=== PATIENT | female | born 1930 | race Caucasian/White ===

== ENCOUNTER 2017-02-22 13:48 | Observation (INO) | payer MEDICARE, OTHER ==
[2017-02-22] MEDS ORDERED: methylPREDNISolone Sodium Succinate 125 MG/2 ML SDV IM ONE (14:15)
[2017-02-22] MEDS ORDERED: Ondansetron 4 MG/2 ML SDV IVPUSH ONE (14:15)
[2017-02-22] MEDS ORDERED: methylPREDNISolone Sodium Succinate 125 MG/2 ML SDV IVPUSH ONE (14:34)
[2017-02-22] MEDS: Sodium Chloride 0.9% 10 ML Syringe FLUSH PRN (14:53)
--- NOTE | 2017-02-22 15:09 | CT ---
Head CT Technique: Multiple axial sections through the brain were obtained. Intravenous contrast was not utilized. Findings: Ventricles along with basal cisterns and sulci over the convexities are mildly prominent. There is focal atrophy seen overlying the frontal convexities. No abnormal parenchymal densities are seen. No evidence of intracranial hemorrhage. No midline shift or mass effect is seen. Atherosclerotic calcification is seen within the carotid siphon. Bone window settings were reviewed which shows no discrete calvarial abnormality. Visualized sinuses are clear. Impression: 1. Generalized atrophy asymmetrically worse over the frontal convexities. 2. No acute intracranial abnormality is identified on noncontrast head CT exam. Diagnostic code #2
--- NOTE | 2017-02-22 16:27 | EDM.PDOC ---
ED HPI GENERAL MEDICAL PROBLEM - General Chief Complaint: Neurological Problem Stated Complaint: [facility] Time Seen by Provider: 02/22/17 14:03 Source of Information: Reports: Patient, Family, RN Notes Reviewed - History of Present Illness INITIAL COMMENTS - FREE TEXT/NARRATIVE: 87-year-old lady comes in severe vertigo. She had onset of this about 6 hours ago. The vertigo is worse with motion, better to lie or sit still. She has had episodes of vertigo in the past but she also does have moderately severe headache this time. She denies history of frequent or severe headaches. Headache is primarily frontal with mild throbbing component. She has been nauseated. She had a small emesis upon arrival to ED. No focal weakness. History of hypertension. She denies history for diabetes. Recent fall or injury. She has been on blood thinner medication in the past but now aspirin in addition to her medications primarily for hypertension and hypothyroidism. Headache Pain Score (Numeric/FACES): 9 - Related Data Allergies Allergy/AdvReac Type Severity Reaction Status Date / Time codeine Allergy Other Verified 02/22/17 13:57 Home Meds: Home Meds Aspirin 2 tab PO DAILY 02/22/17 [History] Irbesartan 300 mg PO DAILY 02/22/17 [History] Levothyroxine 125 mcg PO DAILY 02/22/17 [History] Pindolol 5 mg PO DAILY 02/22/17 [History] Pramipexole [Mirapex] 0.5 mg PO BEDTIME 02/22/17 [History] Triamterene 1 gm PO ACBREAKFAST PRN 02/22/17 [History] amLODIPine [Norvasc] 5 mg PO DAILY 02/22/17 [History] Past Medical History HEENT History: Reports: Cataract Cardiovascular History: Reports: Hypertension, Pacemaker, Other (See Below) Other Cardiovascular History: ablasion 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: Endocrine/Metabolic History: Reports: Other (See Below) Other Endocrine/Metabolic History: unsure if it is hyper or hypo thyroidism - Past Surgical History HEENT Surgical History: Reports: Adenoidectomy, Tonsillectomy GI Surgical History: Reports: Appendectomy, Cholecystectomy Musculoskeletal Surgical History: Reports: Knee Replacement Dermatological Surgical History: Reports: Plastic Surgical Reconstruction/Repair Social & Family History - Tobacco Use Smoking Status *Q: Never Smoker - Caffeine Use Caffeine Use: Reports: Coffee, Tea - Recreational Drug Use Recreational Drug Use: No ED ROS GENERAL - Review of Systems Review Of Systems: See Below Constitutional: Denies: Fever, Chills, Diaphoresis HEENT: Denies: Ear Discharge, Ear Pain, Sinus Problem, Throat Pain, Vision Change Respiratory: Denies: Shortness of Breath Cardiovascular: Denies: Chest Pain GI/Abdominal: Reports: Nausea, Vomiting. Denies: Abdominal Pain Musculoskeletal: Denies: Neck Pain, Back Pain Skin: Reports: No Symptoms Neurological: Reports: Dizziness, Headache. Denies: Numbness, Tingling, Trouble Speaking, Weakness ED EXAM, DIZZINESS - Physical Exam Exam: See Below General Appearance: Alert, Moderate Distress Eye Exam: Bilateral Eye: PERRL Nystagmus: reproducible (Mild, horizontal) Ears: Normal External Exam, Normal Canal Nose: Normal Inspection Throat/Mouth: Normal Inspection, Normal Oropharynx Head Exam: Atraumatic. No: Facial Swelling Respiratory/Chest: No Respiratory Distress, Lungs Clear, Normal Breath Sounds Cardiovascular: Regular Rate, Rhythm GI/Abdominal: Soft, Non-Tender Neurological: Alert, No Motor/Sensory Deficits, Oriented x 3 Extremities: Normal Inspection, Normal Range of Motion. No: Leg Pain Skin Exam: Warm, Dry Course - Vital Signs Last Recorded V/S: Last Vital Signs Temp 97.3 F 02/22/17 13:58 Pulse 62 02/22/17 13:58 Resp 18 02/22/17 13:58 BP 148/60 H 02/22/17 13:58 Pulse Ox 100 02/22/17 13:58 - Orders/Labs/Meds Orders: Active Orders 24 hr Category Date Time Status Peripheral IV Care [RC] . DIRECTED Care 02/22/17 14:15 Active Sodium Chloride 0.9% [Saline Flush] Med 02/22/17 14:15 Active 10 ml FLUSH ASDIRECTED PRN Peripheral IV Insertion Adult [OM.PC] Stat Oth 02/22/17 14:15 Ordered Medication Orders Sodium Chloride (Saline Flush) 10 ml FLUSH ASDIRECTED PRN PRN Reason: Keep Vein Open Last Admin: 02/22/17 14:53 Dose: 10 ml Labs: Laboratory Tests 02/22/17 02/22/17 Range/Units 14:20 14:20 WBC 6.21 (3.98-10.04) K/mm3 RBC 3.91 L (3.98-5.22) M/mm3 Hgb 12.8 (11.2-15.7) gm/L Hct 38.4 (34.1-44.9) % MCV 98.2 H (79.4-94.8) fl MCH 32.7 H (25.6-32.2) pg MCHC 33.3 (32.2-35.5) g/dl RDW Std Deviation 49.9 H (36.4-46.3) fL Plt Count 233 (182-369) K/mm3 MPV 9.3 L (9.4-12.3) fl Neut % (Auto) 78.7 H (34.0-71.1) % Lymph % (Auto) 15.3 L (19.3-51.7) % [place] % (Auto) 4.7 (4.7-12.5) % Eos % (Auto) 0.2 L (0.7-5.8) Baso % (Auto) 0.3 (0.1-1.2) % Neut # (Auto) 4.89 (1.56-6.13) K/mm3 Lymph # (Auto) 0.95 L (1.18-3.74) K/mm3 [place] # (Auto) 0.29 (0.24-0.36) K/mm3 Eos # (Auto) 0.01 L (0.04-0.36) K/mm3 Baso # (Auto) 0.02 (0.01-0.08) K/mm3 Sodium 138 (136-145) mEq/L Potassium 3.5 (3.5-5.1) mEq/L Chloride 102 (98-107) mEq/L Carbon Dioxide 24 (21-32) mEq/L Anion Gap 15.5 H (5-15) BUN 23 H (7-18) mg/dL Creatinine 0.9 (0.55-1.02) mg/dL Est Cr Clr Drug Dosing 40.38 mL/min Estimated GFR (MDRD) 59 (>60) mL/min BUN/Creatinine Ratio 25.6 H (14-18) Glucose 127 H (83-115) mg/dL Calcium 9.0 (8.5-10.1) mg/dL Total Bilirubin 0.6 (0.2-1.0) mg/dL AST 24 (15-37) U/L ALT 20 (14-59) U/L Alkaline Phosphatase 101 (46-116) U/L Total Protein 7.1 (6.4-8.2) g/dl Albumin 3.7 (3.4-5.0) g/dl Globulin 3.4 gm/dL Albumin/Globulin Ratio 1.1 (1-2) Meds: Medications Generic Name Dose Route Start Last Admin Trade Name Fremali PRN Reason Stop Dose Admin Sodium Chloride 10 ml 02/22/17 14:15 02/22/17 14:53 Saline Flush FLUSH 10 ml ASDIRECTED PRN Administration Keep Vein Open Discontinued Medications Generic Name Dose Route Start Last Admin Trade Name Fremali PRN Reason Stop Dose Admin Diazepam 2 mg 02/22/17 14:15 02/22/17 14:38 Valium IVPUSH 02/22/17 14:16 2 mg ONETIME ONE Administration Methylprednisolone Sodium Succinate 125 mg 02/22/17 14:15 02/22/17 14:54 Solu-Medrol IM 02/22/17 14:16 Not Given ONETIME ONE Methylprednisolone Sodium Succinate 125 mg 02/22/17 14:34 02/22/17 14:34 Solu-Medrol IVPUSH 02/22/17 14:35 125 mg ONETIME ONE Administration Ondansetron HCl 4 mg 02/22/17 14:15 02/22/17 14:36 Zofran IVPUSH 02/22/17 14:16 4 mg ONETIME ONE Administration - Re-Assessments/Exams Free Text/Narrative Re-Assessment/Exam: 02/22/17 16:00. Head CT does not show acute abnormality, see radiology report for detail. 16:15. Labs are all relatively normal. When I went in to check on patient a few minutes ago she was very soundly sleeping. Of note she was medicated with Zofran 4 mg IV, Valium 2 mg IV, solumedrol 125 mg IV. 02/22/17 19:20.. Patient awake, feels better, no longer nauseated or having vertigo at rest but when we did try sit her up she did become quite nauseated and was still having some vertigo. [place]. With her continued symptomatology, she and family are not comfortable with her going home. We will admit her at least observation status into the hospital tonight for rest, nursing assistance as needed and further treatment as needed. Departure - Departure Time of Disposition: 19:42 Disposition: Admitted As Inpatient 67 Condition: Fair Clinical Impression: Labyrinthitis Qualifiers: Laterality: unspecified laterality Qualified Code(s): H83.09 - Labyrinthitis, unspecified ear - Discharge Information Referrals: PCP,Not In Area [Primary Care Provider] - Forms: ED Department Discharge ED Communication - Discussed Case With (1) Discussed Case With (1): Admitting Provider (Dr. Urbano, decision to admit at about 19:30.) - My Orders Last 24 Hours: My Active Orders 02/22/17 14:15 Peripheral IV Care [RC] . DIRECTED Sodium Chloride 0.9% [Saline Flush] 10 ml FLUSH ASDIRECTED PRN Peripheral IV Insertion Adult [OM.PC] Stat - Assessment/Plan Last 24 Hours: My Active Orders 02/22/17 14:15 Peripheral IV Care [RC] . DIRECTED Sodium Chloride 0.9% [Saline Flush] 10 ml FLUSH ASDIRECTED PRN Peripheral IV Insertion Adult [OM.PC] Stat
[2017-02-22] MEDS ORDERED: Ondansetron 4 MG/2 ML SDV IV PRN (21:50)
[2017-02-22] MEDS ORDERED: Albuterol/Ipratropium 3.0-0.5 MG/3 ML Neb Soln NEB PRN (21:50)
[2017-02-22] MEDS ORDERED: Bisacodyl 5 MG Tab PO PRN (21:50)
[2017-02-22] MEDS ORDERED: Polyethylene Glycol 3350 Powder 17 GM Packet PO PRN (21:50)
[2017-02-22] MEDS ORDERED: Docusate Sodium 100 MG Cap PO PRN (21:50)
[2017-02-22] MEDS ORDERED: Temazepam 7.5 MG Cap PO PRN (21:50)
[2017-02-22] MEDS ORDERED: Ondansetron 4 MG Tab.DIS PO PRN (21:50)
[2017-02-22] MEDS ORDERED: Ibuprofen 400 MG Tab PO PRN (21:50)
--- NOTE | 2017-02-22 22:28 | PCM.HP ---
H&P History of Present Illness - General Date of Service: 02/22/17 Admit Problem/Dx: Admission Diagnosis/Problem Admission Diagnosis/Problem Vertigo Source of Information: Patient, Old Records, Provider, RN, RN Notes Reviewed History Limitations: Reports: No Limitations - History of Present Illness Initial Comments - Free Text/Narative: Beny Michelle is an 87 yo female who presented to our ER today with severe vertigo for the past 6 hours. Vertigo is worse with motion and better if she lies or sits still. She's had episodes of vertigo in the past and has been treated and hospitalized multiple times also. She has a moderately severe headache this time. Eyes history of headaches. Take his primary frontal with mild throbbing. She has been nauseous and vomited. Full code weakness. History of hypertension. No recent fall or injury. She has been on blood thinner medication edition the past but now on just aspirin. On arrival temp was 97.3F. Pulse 62. Respirations 18. Blood pressure 140/ 60. Pulse ox 100%. Head CT was obtained. Per Dr. Felix interpretation: Ventricles along the basal cisterns and sulci over the convexities are mildly prominent. There is focal atrophy seen overlying the frontal convexities. No abnormal parenchymal densities are seen. No evidence of intracranial hemorrhage. No midline shift or mass effect is seen. Atherosclerotic calcifications seen within the carotid siphon. Labs are obtained: White count normal at 6.21. Hemoglobin 12.8. Hematocrit 30.4. She is macrocytic. Platelet count normal at 233,000. Neutrophils slightly elevated at 70.7. Sodium normal 138. Potassium 3.5. Chloride 102. Carbon dioxide 24. Anion gap 15.5 and slightly elevated. BUN elevated at 23. Creatinine 0.9. GFR is estimated to be 59. Glucose slightly elevated at 127. Calcium normal at 9. Bilirubin normal at 0.6. Liver enzymes AST 24, ALT 20, alkaline phosphatase 101. Protein normal at 7.1 albumin normal at 3.7. She was medicated with Zofran 4 mg IV, Valium 2 mg IV and Solu-Medrol 125 mg IV. In the ED she was feeling good until she sat up at which time she became nauseated and continued to have vertigo. She lives alone out of town and it was determined she would stay in the hospital as opposed to returning home. She carries a history of colon cataracts, hypertension, pacemaker, cardiac ablation, hypothyroidism. She was never a smoker. She was subsequently admitted to the medical floor under observation status. CODE STATUS is DNR/DNI. Her primary care provider is not in the area. Headache Pain Score (Numeric/FACES): 5 - Related Data Allergies/Adverse Reactions: Allergies Allergy/AdvReac Type Severity Reaction Status Date / Time codeine Allergy Other Verified 02/22/17 21:24 Penicillins Allergy Cannot Verified 02/22/17 21:25 Remember Home Medications: Home Meds Aspirin 162 mg PO BEDTIME 02/22/17 [History] Ibuprofen 200 - 400 mg PO Q6H PRN 02/22/17 [History] Irbesartan 300 mg PO DAILY 02/22/17 [History] Levothyroxine 125 mcg PO DAILY 02/22/17 [History] Pindolol 5 mg PO DAILY 02/22/17 [History] Pramipexole [Mirapex] 0.5 mg PO BEDTIME 02/22/17 [History] Triamterene 1 gm PO ACBREAKFAST PRN 02/22/17 [History] amLODIPine [Norvasc] 5 mg PO DAILY 02/22/17 [History] Past Medical History HEENT History: Reports: Hard of Hearing, Impaired Vision, Other (See Below) Other HEENT History: wears glasses, wears bilateral hearing aids, has upper dentures Cardiovascular History: Reports: Afib, Hypertension, Pacemaker, Other (See Below ) Other Cardiovascular History: ablasion Respiratory History: Reports: PE, Sleep Apnea Gastrointestinal History: Reports: None Genitourinary History: Reports: UTI, 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: Musculoskeletal History: Reports: Arthritis Neurological History: Reports: Vertigo Endocrine/Metabolic History: Reports: Hypothyroidism Other Endocrine/Metabolic History: unsure if it is hyper or hypo thyroidism Dermatologic History: Reports: None - Past Surgical History HEENT Surgical History: Reports: Adenoidectomy, Cataract Surgery, Tonsillectomy Cardiovascular Surgical History: Reports: Pacer Respiratory Surgical History: Reports: None GI Surgical History: Reports: Appendectomy, Cholecystectomy, Colonoscopy Female Surgical History: Reports: None Endocrine Surgical History: Reports: None Neurological Surgical History: Reports: None Musculoskeletal Surgical History: Reports: Knee Replacement, Other (See Below) Other Musculoskeletal Surgeries/Procedures:: right knee replaced May 2013 by in [place] Dermatological Surgical History: Reports: Plastic Surgical Reconstruction/Repair Social & Family History - Family History Family Medical History: Noncontributory - Tobacco Use Smoking Status *Q: Never Smoker - Caffeine Use Caffeine Use: Reports: Coffee, Tea - Alcohol Use Days Per Week of Alcohol Use: 7 Number of Drinks Per Day: 2 Total Drinks Per Week: 14 - Recreational Drug Use Recreational Drug Use: No H&P Review of Systems - Review of Systems: Review Of Systems: See Below General: Denies: Fever, Chills, Malaise, Weakness, Fatigue, Night Sweats HEENT: Reports: Headaches. Denies: Contact Lenses, Dysphasia, Ear Pain, Eye Pain, Post Nasal Drip, Sinus Congestion, Sore Throat Pulmonary: Reports: No Symptoms. Denies: Shortness of Breath, Wheezing, Pleuritic Chest Pain, Cough, Sputum Gastrointestinal: Reports: Nausea (Worse with movement), Vomiting (Worse with movement). Denies: No Symptoms, Abdominal Pain, Anorexia, Black Stool, Constipation, Diarrhea, Melena Genitourinary: Reports: No Symptoms Musculoskeletal: Reports: No Symptoms Skin: Reports: No Symptoms Psychiatric: Reports: No Symptoms. Denies: Confusion, Depression, Mood Lability , Anxiety Neurological: Reports: Dizziness, Headache. Denies: Numbness, Seizure, Syncope , Tingling, Difficulty Walking, Weakness, Change in Speech, Gait Disturbance Hematologic/Lymphatic: Reports: No Symptoms Immunologic: Reports: No Symptoms Exam - Exam Exam: See Below - Vital Signs Vital Signs: Last Vital Signs Temp 97.3 F 02/22/17 13:58 Pulse 59 L 02/22/17 20:49 Resp 16 02/22/17 20:49 BP 127/66 02/22/17 20:49 Pulse Ox 96 02/22/17 20:49 Weight: 205 lb 12.8 oz - Exam Quality Assessment: Supplemental Oxygen, DVT Prophylaxis General: Alert, Oriented, Cooperative HEENT: Conjunctiva Clear, EACs Clear, EOMI (Mild horizontal nystagmus noted. Increased pain with left superior gaze.), Hearing Intact, Mucosa Moist & [place], Nares Patent, Normal Nasal Septum, Posterior Pharynx Clear, PERRLA Neck: Supple, Trachea Midline. No: JVD Lungs: Clear to Auscultation, Normal Respiratory Effort Cardiovascular: Regular Rate, Regular Rhythm GI/Abdominal Exam: Normal Bowel Sounds, Soft, Non-Tender, No Organomegaly, No Distention, No Abnormal Bruit, No Mass (Female) Exam: Deferred Rectal (Female) Exam: Deferred Back Exam: Normal Inspection, Full Range of Motion Extremities: Normal Inspection, Normal Range of Motion, Non-Tender, No Pedal Edema, Normal Capillary Refill Peripheral Pulses: 2+: Radial (L), Radial (R), Posterior Tibial (L), Posterior Tibial (R), Dorsalis Pedis (L), Dorsalis Pedis (R) Skin: Warm, Dry, Intact Neurological: Cranial Nerves Intact (Grossly) Neuro Extensive - Mental Status: Alert, Oriented x3, Normal Mood/Affect, Normal Cognition, Memory Intact Neuro Extensive - Motor, Sensory, Reflexes: CN II-XII Intact (Grossly) Psychiatric: Alert, Normal Affect, Normal Mood Physical Exam Comments:: At this time only complaint is headache. I did have the patient move this in the lung sounds and examine her back and she complained of mild dizziness at that time. - Patient Data Result Diagrams: 02/22/17 14:20 02/22/17 14:20 *Q Meaningful Use (ADM) - VTE *Q VTE Criteria *Q: - Stroke *Q Stroke Criteria *Q: - AMI *Q AMI Criteria *Q: - Problem List (1) Dizziness SNOMED Code(s): 826284973 ICD Code: R42 - DIZZINESS AND GIDDINESS Status: Acute Priority: High Current Visit: Yes (2) Headache SNOMED Code(s): 48194740 ICD Code: R51 - HEADACHE Status: Acute Priority: High Current Visit: Yes Qualifiers: Headache type: unspecified Headache chronicity pattern: acute headache Intractability: not intractable Qualified Code(s): R51 - Headache Problem List Initiated/Reviewed/Updated: Yes Orders Last 24hrs: Active Orders 24 hr Category Date Time Status Patient Status [ADT] Routine ADT 02/22/17 20:22 Active Ambulate [RC] PER UNIT ROUTINE Care 02/22/17 21:58 Active Antiembolic Devices [RC] PER UNIT ROUTINE Care 02/22/17 22:02 Active Height and Weight [RC] DAILY Care 02/22/17 21:50 Active Intake and Output [RC] QSHIFT Care 02/22/17 21:58 Active Oxygen Therapy [RC] PRN Care 02/22/17 21:50 Active Pulse Oximetry [RC] PRN Care 02/22/17 21:58 Active RT Aerosol Therapy [RC] ASDIRECTED Care 02/22/17 22:02 Active Up With Assistance [RC] ASDIRECTED Care 02/22/17 21:50 Active VTE/DVT Education [RC] PER UNIT ROUTINE Care 02/22/17 21:50 Active Vital Signs [RC] Q4H Care 02/22/17 21:50 Active Consult to Case Management [CONS] Routine Cons 02/22/17 21:50 Active Consult to Welder Tack [CONS] Routine Cons 02/22/17 21:50 Active OT Evaluation and Treatment [CONS] Routine Cons 02/22/17 21:50 Active PT Evaluation and Treatment [CONS] Routine Cons 02/22/17 21:50 Active Heart Healthy Diet [DIET] Diet 02/23/17 Breakfast Active Albuterol/Ipratropium [DuoNeb 3.0-0.5 MG/3 ML] Med 02/22/17 21:50 Ordered 3 ml NEB Q4H PRN Bisacodyl [Dulcolax] Med 02/22/17 21:50 Ordered 5 mg PO DAILY PRN Docusate Sodium [Colace] Med 02/22/17 21:50 Ordered 100 mg PO BID PRN Docusate Sodium/Sennosides [Senna Plus] Med 02/22/17 21:50 Ordered 1 tab PO BID PRN Ibuprofen [Motrin] Med 02/22/17 21:50 Ordered 400 mg PO Q6H PRN Ondansetron [Zofran ODT] Med 02/22/17 21:50 Ordered 4 mg PO Q6H PRN Ondansetron [Zofran] Med 02/22/17 21:50 Ordered 4 mg IV Q6H PRN Polyethylene Glycol 3350 [MiraLAX] Med 02/22/17 21:50 Ordered 17 gm PO DAILY PRN Temazepam [Restoril] Med 02/22/17 21:50 Ordered 7.5 mg PO BEDTIME PRN Antiembolic Hose [OM.PC] Per Unit Routine Oth 02/22/17 21:59 Ordered Resuscitation Status Routine Resus Stat 02/22/17 21:50 Ordered Medication Orders Albuterol/Ipratropium (Duoneb 3.0-0.5 Mg/3 Ml) 3 ml NEB Q4H PRN PRN Reason: Shortness Of Breath/wheezing Bisacodyl (Dulcolax) 5 mg PO DAILY PRN PRN Reason: Constipation Docusate Sodium (Colace) 100 mg PO BID PRN PRN Reason: Constipation Ibuprofen (Motrin) 400 mg PO Q6H PRN PRN Reason: Pain (mild 1-3) Ondansetron HCl (Zofran Odt) 4 mg PO Q6H PRN PRN Reason: nausea, able to take PO Ondansetron HCl (Zofran) 4 mg IV Q6H PRN PRN Reason: Nausea/Vomiting Polyethylene Glycol (Miralax) 17 gm PO DAILY PRN PRN Reason: Constipation Senna/Docusate Sodium (Senna Plus) 1 tab PO BID PRN PRN Reason: Constipation Sodium Chloride (Saline Flush) 10 ml FLUSH ASDIRECTED PRN PRN Reason: Keep Vein Open Last Admin: 02/22/17 14:53 Dose: 10 ml Temazepam (Restoril) 7.5 mg PO BEDTIME PRN PRN Reason: Sleep Assessment/Plan Comment:: I/P: Dizziness -Improved from ED -Reports she has been seen multiple times at multiple locations including [facility] for dizziness and vertigo with no answers. -Given zofran, Solu-Medrol, and Valium in ED which improved symptoms. -CT scan negative for acute findings as noted in report -Allow pt. to sleep -Continue to monitor -Of note: she is allergic to codeine and is unsure what pain medications she has taken when hospitalized in the past Headache -Over left frontal region -CT scan in ED negative -06/30 pain now -Will order motrin now as patient says this usually helps with pain -ESR ordered Chronic: Cataracts HTN Pacemaker Cardiac ablasion Hypothyroidism Plan: Admit to medical floor on observation CM/SW for discharge planning PT/OT Home medications as ordered Other orders as indicated above Routine AM labs She is DNR/DNI and her PCP is not in the area.
[2017-02-22] MEDS ORDERED: TRIAMTERENE PO PRN (22:43)
[2017-02-22] MEDS ORDERED: HYDROCHLOROTHIAZIDE PO PRN (22:43)
[2017-02-23] MEDS ORDERED: Diphtheria,Pertussis(Acell),Tetanus Vaccine 0.5 ML SDV IM ONE (08:47)
[2017-02-23] MEDS ORDERED: LEVOTHYROXINE 125 MCG PO SCH (10:00)
[2017-02-23] MEDS ORDERED: Iopamidol 755 Mg/ML 100 ML Bottle IVPUSH ONE (10:17)
[2017-02-23] MEDS ORDERED: Sodium Chloride 0.9% 10 ML Syringe FLUSH PRN (10:17)
[2017-02-23] MEDS ORDERED: Meclizine 12.5 MG Tab PO PRN (10:29)
[2017-02-23] MEDS ORDERED: Sodium Chloride 0.9% 100 ML IV SCH (10:30)
[2017-02-23] MEDS: Sodium Chloride 0.9% 10 ML Syringe FLUSH PRN (10:46)
--- NOTE | 2017-02-23 12:44 | CT ---
CT angiogram of brain Technique: CT angiogram study was obtained centered to the [place]. Intravenous contrast was utilized. Multiple MIP images were obtained. Findings: Distal vertebral arteries are patent. Basilar artery is patent. Proximal posterior cerebral arteries are patent. Carotid siphons and distal internal carotid arteries are patent. Normal flow seen into the middle and anterior cerebral arteries. No focal areas of stenosis is seen. No aneurysm is identified. Impression: 1. No abnormality is identified on CT angiogram of brain Diagnostic code #1
--- NOTE | 2017-02-23 12:44 | CT ---
CT angiogram of neck Technique: Multiple axial sections through the neck were obtained. Intravenous contrast was utilized. Multiple MIP images were obtained in multiple projections. Findings: Common carotid arteries are patent. There is mild atherosclerotic calcified plaque being seen within the proximal internal carotid arteries. Mild atheromatous irregularity is seen within the proximal left internal carotid artery. This causes mild stenosis by about 25%. No other areas of stenosis are seen. Proximal left vertebral artery is not optimally seen. Other portions of the vertebral arteries are widely patent. Impression: 1. Mild atheromatous irregularity within the proximal left internal carotid artery causing narrowing by about 25%. 2. Proximal left vertebral artery is not optimally seen. Other portions of the study appear within normal limits. Diagnostic code #2
--- NOTE | 2017-02-23 15:02 | PCM.DCSUM1 ---
Discharge Summary - Hospital Course Free Text/Narrative:: Beny Michelle is an 87 yo female who presented to our ER today with severe vertigo for the past 6 hours. Vertigo is worse with motion and better if she lies or sits still. She's had episodes of vertigo in the past and has been treated and hospitalized multiple times also. She has a moderately severe headache this time. Eyes history of headaches. Take his primary frontal with mild throbbing. She has been nauseous and vomited. Full code weakness. History of hypertension. No recent fall or injury. She has been on blood thinner medication edition the past but now on just aspirin. On arrival temp was 97.3F. Pulse 62. Respirations 18. Blood pressure 140/ 60. Pulse ox 100%. Head CT was obtained. Per Dr. Felix interpretation: Ventricles along the basal cisterns and sulci over the convexities are mildly prominent. There is focal atrophy seen overlying the frontal convexities. No abnormal parenchymal densities are seen. No evidence of intracranial hemorrhage. No midline shift or mass effect is seen. Atherosclerotic calcifications seen within the carotid siphon. Labs are obtained: White count normal at 6.21. Hemoglobin 12.8. Hematocrit 30.4. She is macrocytic. Platelet count normal at 233,000. Neutrophils slightly elevated at 70.7. Sodium normal 138. Potassium 3.5. Chloride 102. Carbon dioxide 24. Anion gap 15.5 and slightly elevated. BUN elevated at 23. Creatinine 0.9. GFR is estimated to be 59. Glucose slightly elevated at 127. Calcium normal at 9. Bilirubin normal at 0.6. Liver enzymes AST 24, ALT 20, alkaline phosphatase 101. Protein normal at 7.1 albumin normal at 3.7. She was medicated with Zofran 4 mg IV, Valium 2 mg IV and Solu-Medrol 125 mg IV. In the ED she was feeling good until she sat up at which time she became nauseated and continued to have vertigo. She lives alone out of town and it was determined she would stay in the hospital as opposed to returning home. She carries a history of colon cataracts, hypertension, pacemaker, cardiac ablation, hypothyroidism. She was never a smoker. She was subsequently admitted to the medical floor under observation status. CODE STATUS is DNR/DNI. Her primary care provider is not in the area. Upon arrival to the hospital floor she was quite relaxed from being medicated in the ED. She complained of a headache and Motrin was given. She was given Restoril for sleep. Oxygen was applied as the patient did not have her home CPAP here. This morning she was greatly improved. PT\OT examined her and she was negative for any acute concerns. PT recommended physical therapy at her home. A CT angiogram of the head and neck was obtained. In the neck there is mild atheromatous irregularity within the proximal left internal carotid artery causing narrowing by about 25%. Left vertebral arteries not optimally seen. Other portions of the study appear within normal limits. CT angiogram the brain revealed no abnormality. She complained of mild nausea and was treated with Zofran. She was given meclizine and this helped as well. She will continue Bomex, as her daughter is very familiar with this medication. I offered to prescribe it however she reported she will obtain it OTC. She'll be given a prescription for Zofran. Troponin was negative. Labs this morning looked good. She should follow-up with her primary care provider in 7-10 days. She'll be discharged home today and her daughter reports she will stay with her for long as needed. - Discharge Data Discharge Date: 02/23/17 (Admit date: 02/22/17) Discharge Disposition: Home, Self-Care 01 Condition: Good - Discharge Diagnosis/Problem(s) (1) Dizziness SNOMED Code(s): 144914440 ICD Code: R42 - DIZZINESS AND GIDDINESS Status: Acute Priority: High Current Visit: Yes (2) Headache SNOMED Code(s): 51093311 ICD Code: R51 - HEADACHE Status: Resolved Priority: High Current Visit : Yes Qualifiers: Headache type: unspecified Headache chronicity pattern: acute headache Intractability: not intractable Qualified Code(s): R51 - Headache - Patient Summary/Data Consults: Consultations 02/22/17 21:50 Consult to Case Management [CONS] Routine Consult to Tetryl Wringer Operator [CONS] Routine OT Evaluation and Treatment [CONS] Routine PT Evaluation and Treatment [CONS] Routine - Patient Instructions Diet: Heart Healthy Diet Activity: As Tolerated Driving: Do Not Drive Showering/Bathing: May Shower Notify Provider of: Fever, Increased Pain, Nausea and/or Vomiting - Discharge Plan Prescriptions/Med Rec: Ondansetron [Zofran ODT] 4 mg PO Q6H PRN #20 tab.dis PRN Reason: Nausea/vomiting Home Medications: Home Meds Aspirin 162 mg PO BEDTIME 02/22/17 [History] Ibuprofen 200 - 400 mg PO Q6H PRN 02/22/17 [History] Irbesartan 300 mg PO DAILY 02/22/17 [History] Levothyroxine 125 mcg PO DAILY 02/22/17 [History] Pindolol 5 mg PO DAILY 02/22/17 [History] Pramipexole [Mirapex] 0.5 mg PO BEDTIME 02/22/17 [History] Triamterene 1 gm PO ACBREAKFAST PRN 02/22/17 [History] amLODIPine [Norvasc] 5 mg PO DAILY 02/22/17 [History] Ondansetron [Zofran ODT] 4 mg PO Q6H PRN #20 tab.dis 02/23/17 [Rx] Patient Handouts: Vertigo, Ecyg-aw-Dfey, Dizziness, [id number] Forms: ED Department Discharge Referrals: PCP,Not In Area [Primary Care Provider] - Reji Almaraz MD [Physician] - - Discharge Summary/Plan Comment DC Time >30 min.: Yes (45 min) - General Info Date of Service: 02/23/17 Admission Dx/Problem (Free Text: Admission Diagnosis/Problem Admission Diagnosis/Problem Vertigo Functional Status: Reports: Pain Controlled, Tolerating Diet, Ambulating, Urinating. Denies: New Symptoms - Review of Systems General: Reports: No Symptoms HEENT: Reports: No Symptoms Pulmonary: Reports: No Symptoms Cardiovascular: Reports: No Symptoms Gastrointestinal: Reports: Abdominal Pain (Epigastric - chronic ), Nausea ( resolved with zofran). Denies: Diarrhea, Vomiting Genitourinary: Reports: No Symptoms Musculoskeletal: Reports: No Symptoms Skin: Reports: No Symptoms Neurological: Reports: Dizziness (greatly improved). Denies: Confusion, Headache, Numbness, Paresthesia, Pre-Existing Deficit, Tremors, Trouble Speaking , Difficulty Walking, Weakness, Change in Speech Psychiatric: Reports: No Symptoms - Patient Data Vitals - Most Recent: Last Vital Signs Temp 98.1 F 02/23/17 12:06 Pulse 62 02/23/17 12:06 Resp 20 02/23/17 12:06 BP 124/55 L 02/23/17 12:06 Pulse Ox 97 02/23/17 12:06 Weight - Most Recent: 198 lb 3.2 oz I&O - Last 24 hours: Intake & Output 02/23/17 02/23/17 02/23/17 06:59 14:59 22:59 Intake Total 300 260 Output Total 800 Balance -500 260 Lab Results - Last 24 hrs: Laboratory Results - last 24 hr 02/23/17 02/23/17 02/23/17 Range/Units 06:10 06:10 06:30 WBC 6.85 (3.98-10.04) K/mm3 RBC 3.73 L (3.98-5.22) M/mm3 Hgb 12.0 (11.2-15.7) gm/L Hct 36.7 (34.1-44.9) % MCV 98.4 H (79.4-94.8) fl MCH 32.2 (25.6-32.2) pg MCHC 32.7 (32.2-35.5) g/dl RDW Std Deviation 50.6 H (36.4-46.3) fL Plt Count 251 (182-369) K/mm3 MPV 9.4 (9.4-12.3) fl Neut % (Auto) 89.8 H (34.0-71.1) % Lymph % (Auto) 8.3 L (19.3-51.7) % Mccormick % (Auto) 1.5 L (4.7-12.5) % Eos % (Auto) 0 L (0.7-5.8) Baso % (Auto) 0.0 L (0.1-1.2) % Neut # (Auto) 6.15 H (1.56-6.13) K/mm3 Lymph # (Auto) 0.57 L (1.18-3.74) K/mm3 [place] # (Auto) 0.10 L (0.24-0.36) K/mm3 Eos # (Auto) 0.00 L (0.04-0.36) K/mm3 Baso # (Auto) 0.00 L (0.01-0.08) K/mm3 Manual Slide Review Normal smear Sodium 138 (136-145) mEq/L Potassium 4.0 (3.5-5.1) mEq/L Chloride 103 (98-107) mEq/L Carbon Dioxide 22 (21-32) mEq/L Anion Gap 17.0 H (5-15) BUN 29 H (7-18) mg/dL Creatinine 1.1 H (0.55-1.02) mg/dL Est Cr Clr Drug Dosing 33.03 mL/min Estimated GFR (MDRD) 47 (>60) mL/min BUN/Creatinine Ratio 26.4 H (14-18) Glucose 149 H (83-115) mg/dL Calcium 9.0 (8.5-10.1) mg/dL Magnesium 2.2 (1.8-2.4) mg/dl Troponin I 0.022 (0.00-0.056) ng/mL Med Orders - Current: Current Medications Albuterol/Ipratropium (Duoneb 3.0-0.5 Mg/3 Ml) 3 ml NEB Q4H PRN PRN Reason: Shortness Of Breath/wheezing Amlodipine Besylate (Norvasc) 5 mg PO QPM [facility] Aspirin (Halfprin) 162 mg PO QPM [facility] Bisacodyl (Dulcolax) 5 mg PO DAILY PRN PRN Reason: Constipation Docusate Sodium (Colace) 100 mg PO BID PRN PRN Reason: Constipation Ibuprofen (Motrin) 400 mg PO Q6H PRN PRN Reason: Pain (mild 1-3) Last Admin: 02/22/17 22:41 Dose: 400 mg Levothyroxine Sodium (Levothyroxine) 125 mcg PO ACBREAKFAST [facility] Last Admin: 02/23/17 10:18 Dose: 125 mcg Meclizine HCl (Antivert) 12.5 mg PO BID PRN PRN Reason: dizzyness/vertigo Last Admin: 02/23/17 13:19 Dose: 12.5 mg Ondansetron HCl (Zofran Odt) 4 mg PO Q6H PRN PRN Reason: nausea, able to take PO Ondansetron HCl (Zofran) 4 mg IV Q6H PRN PRN Reason: Nausea/Vomiting Last Admin: 02/23/17 10:25 Dose: 4 mg Irbesartan 300 Mg 0 each PO DAILY [facility] Last Admin: 02/23/17 10:18 Dose: 1 each Pindolol (Visken) 5 mg PO QPM [facility] Polyethylene Glycol (Miralax) 17 gm PO DAILY PRN PRN Reason: Constipation Pramipexole Dihydrochloride (Mirapex) 0.5 mg PO BEDTIME TRIP Senna/Docusate Sodium (Senna Plus) 1 tab PO BID PRN PRN Reason: Constipation Sodium Chloride (Saline Flush) 10 ml FLUSH ASDIRECTED PRN PRN Reason: Keep Vein Open Last Admin: 02/23/17 10:46 Dose: 10 ml Temazepam (Restoril) 7.5 mg PO BEDTIME PRN PRN Reason: Sleep Last Admin: 02/22/17 23:21 Dose: 7.5 mg Triamterene/HCTZ (Dyazide 25-37.5 Mg) 0 each PO ACBREAKFAST PRN PRN Reason: Other Discontinued Medications Diazepam (Valium) 2 mg IVPUSH ONETIME ONE Stop: 02/22/17 14:16 Last Admin: 02/22/17 14:38 Dose: 2 mg Diphtheria/Tetanus/Acell Pertussis (Adacel) 0.5 ml IM .ONCE ONE Stop: 02/23/17 08:48 Sodium Chloride (Normal Saline) 100 mls @ 80 mls/hr IV ASDIRECTED TRIP Stop: 02/23/17 13:00 Last Admin: 02/23/17 10:46 Dose: 80 mls/hr Iopamidol (Isovue-370 (76%)) 100 ml IVPUSH ONETIME ONE Stop: 02/23/17 10:18 Last Admin: 02/23/17 10:46 Dose: 100 ml Methylprednisolone Sodium Succinate (Solu-Medrol) 125 mg IM ONETIME ONE Stop: 02/22/17 14:16 Last Admin: 02/22/17 14:54 Dose: Not Given Methylprednisolone Sodium Succinate (Solu-Medrol) 125 mg IVPUSH ONETIME ONE Stop: 02/22/17 14:35 Last Admin: 02/22/17 14:34 Dose: 125 mg Ondansetron HCl (Zofran) 4 mg IVPUSH ONETIME ONE Stop: 02/22/17 14:16 Last Admin: 02/22/17 14:36 Dose: 4 mg Sodium Chloride (Saline Flush) 10 ml FLUSH ONETIME PRN PRN Reason: IV FLUSH Stop: 02/23/17 13:00 - Exam Quality Assessment: Reports: DVT Prophylaxis General: Reports: Alert, Oriented, Cooperative HEENT: Reports: Pupils Equal, Pupils Reactive, EOMI, Mucous Membr. Moist/[place] Neck: Reports: Supple, Trachea Midline. Denies: No JVD Lungs: Reports: Clear to Auscultation, Normal Respiratory Effort Cardiovascular: Reports: Regular Rate, Regular Rhythm GI/Abdominal Exam: Normal Bowel Sounds, Soft, Non-Tender, No Organomegaly, No Distention, No Abnormal Bruit, No Mass, Pelvis Stable (Female) Exam: Deferred Rectal (Female) Exam: Deferred Back Exam: Reports: Normal Inspection, Full Range of Motion Extremities: Normal Inspection, Normal Range of Motion, Non-Tender, No Pedal Edema, Normal Capillary Refill Skin: Reports: Warm, Dry, Intact Neurological: Reports: No New Focal Deficit Psy/Mental Status: Reports: Alert, Normal Affect, Normal Mood *Q Meaningful Use (DIS) - VTE *Q VTE Criteria *Q: - Stroke *Q Stroke Criteria *Q: - AMI *Q AMI Criteria *Q:
[2017-02-23] MEDS ORDERED: ASPIRIN 81 MG PO SCH (18:00)
[2017-02-23] MEDS ORDERED: PINDOLOL 5 MG PO SCH (18:00)
[2017-02-23] MEDS ORDERED: PRAMIPEXOLE 0.5 MG PO SCH (21:00)
[2017-02-24] MEDS ORDERED: AMLODIPINE 5 MG PO SCH (18:00)
== END 2017-02-23 15:30 | disposition home or self-care (01) ==
LOC: JD.ED 13:48 → JD.MS 20:18
PROVIDERS: ADMIT Internal Medicine; ATTEND Internal Medicine
DX: R42 Dizziness and giddiness (principal); R51 Headache; I10 Essential (primary) hypertension; E03.9 Hypothyroidism, unspecified; M19.90 Unspecified osteoarthritis, unspecified site; G47.30 Sleep apnea, unspecified; I48.91 Unspecified atrial fibrillation; Z79.82 Long term (current) use of aspirin; Z79.899 Other long term (current) drug therapy; Z88.0 Allergy status to penicillin; Z88.5 Allergy status to narcotic agent; Z86.711 Personal history of pulmonary embolism; Z87.440 Personal history of urinary (tract) infections; Z95.0 Presence of cardiac pacemaker; Z96.651 Presence of right artificial knee joint; Z98.49 Cataract extraction status, unspecified eye; Z90.49 Acquired absence of other specified parts of digestive tract; Z90.89 Acquired absence of other organs; Z98.890 Other specified postprocedural states
CPT/HCPCS: 36415; 70450; 70496; 70498; 80048; 80053; 83735; 84484; 85025; 85652; 95992; 96374; 96375; 97162; 97165; 99285; A9270; J2405; J2930; J3360; J7030; J7050; Q9967; 93010; 96376; G0378

== ENCOUNTER 2020-08-31 10:14 | Emergency (ER) | payer MEDICARE, OTHER ==
--- NOTE | 2020-08-31 10:47 | EDM.PDOC ---
ED HPI GENERAL MEDICAL PROBLEM - General Chief Complaint: Cardiovascular Problem Stated Complaint: FATIGUE/SENT BY [facility] Time Seen by Provider: 08/31/20 10:42 Source of Information: Reports: Patient History Limitations: Reports: No Limitations - History of Present Illness INITIAL COMMENTS - FREE TEXT/NARRATIVE: 89-year-old female presents to the ED for evaluation after being seen at [facility] this morning. The history suggest that she had lab work and an ECG in [place] yesterday. These values were sent to [facility] across the street where the she was seen by a provider this morning. Reportedly an ECG did not look right to the provider and she sent her to the ED. The patient and her daughter really do not have any clue as to why she came. She is complaining of diffuse chest pain which is chest wall in origin and left lower rib pain. Concern I would have is whether she has underlying metastatic disease to the bones. She clinically has some degree of cervical radiculopathy in the left upper shoulder and into the arm and in the distribution of supraspinatus tendon. From what I can gather from the daughter the patient was sent here because the provider at [facility] did not like the way her ECG looked. Onset: Other (Chronic problems perhaps just getting worse.) Duration: Chronic, Getting Worse Location: Reports: Chest (Diffuse left precordial chest pain well localized to the ribs.), Upper Extremity, Left (Radicular pain from her neck into the left upper) Quality: Reports: Ache ( posterior shoulder.), Sharp, Stabbing Severity: Moderate Improves with: Reports: Rest Worsens with: Reports: Movement (Certain movements of her left upper extremity will make the pain worse.) Context: Denies: Activity, Exercise, Lifting, Sick Contact, Trauma, Other Associated Symptoms: Reports: Confusion (Mildly impaired short-term memory.), Chest Pain (Left precordial chest pain). 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: Reports: Other (see below) Left Shoulder Pain Score (Numeric/FACES): 6 - Related Data Allergies Allergy/AdvReac Type Severity Reaction Status Date / Time codeine Allergy Other Verified 08/31/20 10:33 Penicillins Allergy Cannot Verified 08/31/20 10:33 Remember Home Meds: Home Meds Aspirin 162 mg PO BEDTIME 02/22/17 [History] Aspirin [Ecotrin EC] 162 mg PO DAILY 12/05/18 [History] Gabapentin [Neurontin] 100 mg PO DAILY 12/05/18 [History] Gabapentin [Neurontin] 300 mg PO BEDTIME 12/05/18 [History] Irbesartan 300 mg PO DAILY 12/05/18 [History] Levothyroxine 125 mcg PO DAILY 12/05/18 [History] amLODIPine [Norvasc] 5 mg PO DAILY 12/05/18 [History] cephALEXin [Keflex] 500 mg PO BID #10 capsule 12/05/18 [Rx] pindoloL [Pindolol] 5 mg PO DAILY 12/05/18 [History] Past Medical History HEENT History: Reports: Hard of Hearing, Impaired Vision, Other (See Below) Other HEENT History: wears glasses, wears bilateral hearing aids, has upper dentures Cardiovascular History: Reports: Afib, Hypertension, Pacemaker (She is on the seventh eighth year of her pacemaker and apparently the battery is getting low.), Other (See Below) Other Cardiovascular History: ablasion Respiratory History: Reports: PE, Sleep Apnea Gastrointestinal History: Reports: None Genitourinary History: Reports: UTI, Recurrent, Other (See Below) (Urinary frequency.) 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: Musculoskeletal History: Reports: Arthritis Other Musculoskeletal History: restless legs Neurological History: Reports: Vertigo Endocrine/Metabolic History: Reports: Hypothyroidism Other Endocrine/Metabolic History: unsure if it is hyper or hypo thyroidism Dermatologic History: Reports: None - Past Surgical History HEENT Surgical History: Reports: Adenoidectomy, Cataract Surgery, Tonsillectomy Cardiovascular Surgical History: Reports: Pacer GI Surgical History: Reports: Appendectomy, Cholecystectomy, Colonoscopy Musculoskeletal Surgical History: Reports: Knee Replacement, Other (See Below) Other Musculoskeletal Surgeries/Procedures:: right knee replaced May 2013 by in [place] Dermatological Surgical History: Reports: Plastic Surgical Reconstruction/Repair Social & Family History - Family History Family Medical History: No Pertinent Family History - Tobacco Use Tobacco Use Status *Q: Never Tobacco User Second Hand Smoke Exposure: No - Caffeine Use Caffeine Use: Reports: Coffee, Tea - Recreational Drug Use Recreational Drug Use: No - Living Situation & Occupation Living situation: Reports: , Alone Occupation: Retired ED ROS GENERAL - Review of Systems Review Of Systems: See Below Constitutional: Reports: Malaise, Weakness, Fatigue. Denies: Fever, Chills, Decreased Appetite, Weight Loss HEENT: Reports: Glasses Respiratory: Denies: Shortness of Breath, Wheezing, Pleuritic Chest Pain, Cough, Sputum Cardiovascular: Reports: Dyspnea on Exertion (Trace edema in her feet.), Edema. 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 Denies: Bruising Neurological: Reports: Confusion, Dizziness, Difficulty Walking, Weakness. Denies: Headache, Numbness, Syncope, Tingling, Tremors, Trouble Speaking, Change in Speech Psychiatric: Reports: No Symptoms Hematologic/Lymphatic: Reports: No Symptoms Immunologic: Reports: No Symptoms ED EXAM, GENERAL - Physical Exam Exam: See Below Exam Limited By: No Limitations General Appearance: Alert, WD/WN, No Apparent Distress, Other (Temperature is 36.3 with a heart rate of 63 and sinus respiratory is 12 with O2 sats of 97% room air BP 143/70 and it came down to 126/68.) Eye Exam: Bilateral Eye: Normal Inspection (No scleral icterus or blepharal pallor.), PERRL Throat/Mouth: Normal Inspection, Normal Lips, Normal Oropharynx, Other Head: Atraumatic (Tongue is moist. She states she had cereal for breakfast this morning.), Normocephalic Neck: Normal Inspection, Supple, Non-Tender, Full Range of Motion, Limited Range of Motion (She has some crepitus on lateral rotation and lateral flexion.), Tender Lateral, Other (Patient does have radiculopathy into her left upper extremity with her head tilted backwards and axial compression in extension when head tilted to the left.). No: Carotid Bruit, Lymphadenopathy (L), Lymphadenopathy (R), Thyromegaly Respiratory/Chest: No Respiratory Distress (Mild tenderness laterally which she states is always present.), Lungs Clear, Normal Breath Sounds, No Accessory Muscle Use, Other (Chest wall is exquisitely tender to touch in the midclavicular line ribs 345 on the right side ribs 2345 and 6 on the left side.) Cardiovascular: Regular Rate, Rhythm, No Edema, No Gallop, No JVD, No Murmur, No Rub Peripheral Pulses: 1+: Posterior Tibial (L), Posterior Tibial (R), Dorsalis Pedis (L), Dorsalis Pedis (R), 2+: Carotid (L), Carotid (R) GI/Abdominal: Normal Bowel Sounds, Soft, Non-Tender, No Organomegaly, No Mass, Pelvis Stable, Other (Abdomen is mildly obese. She has a large midline surgical incision from xiphisternum to the pubic symphysis. Apparently she had release of adhesions at the same time she had breast reduction surgery complicated by multiple pulmonary embolism. She spent 2 weeks in hospital. She states her gallbla) Extremities: Pedal Edema (To just above the ankle. 1+), Other (Patient has had bilateral total knee replacements. Very limited internal and external rotation of both hips combined with arthritic arthritic change.) Neurological: Alert, Oriented, CN II-XII Intact, Normal Cognition, Normal Gait Psychiatric: Normal Affect, Normal Mood Skin Exam: Warm, Dry, Intact, Normal Color, No Rash #1 Interpretation EKG Date: 08/31/20 Time: 10:44 Rhythm: Other (Atrial paced rhythm 100%) Rate (Beats/Min): 60 [place]: LAD-Left [place] Deviation (-36 degrees) P-Wave: Absent QRS: Other (Early R wave transition consider right ventricular hypertrophy/septal hypertrophy pattern tall R wave in lead I consider left ventricular hypertrophy pattern) ST-T: Other (T wave flattening in aVF nonspecific finding) QT: Normal EKG Interpretation Comments: Abnormal ECG Course - Vital Signs Last Recorded V/S: Last Vital Signs Temp 36.3 C 08/31/20 10:27 Pulse 63 08/31/20 10:27 Resp 12 08/31/20 10:27 BP 143/70 H 08/31/20 10:27 Pulse Ox 97 08/31/20 10:27 - Orders/Labs/Meds Orders: Active Orders 24 hr Category Date Time Status EKG Documentation Completion [RC] STAT Care 08/31/20 10:43 Active - Radiology Interpretation Free Text/Narrative:: 89-year-old female attends the ER with her daughter. They were structured to come to the ED due to concerns that provider at [facility] had in regards to an ECG that was done at their facility this morning. Lab tests were done through the [facility] yesterday and the daughter has them on her phone. The only thing that was abnormal was a low TSH at 0.44 I believe which means she needs a reduction in her thyroid replacement hormone. Her blood pressure is stable. Her lungs are clear. Her ECG shows atrial paced rhythm at 60/min where the pacemaker is set. There is left affix deviation of -36 degrees but no other abnormalities other than likely mild left ventricular perjury pattern and early R wave transition suggesting septal hypertrophy pattern. There is certainly no signs of ischemia. No signs of any malignant arrhythmia. The daughter was able to bring up all of her current medications and lab tests and therefore I do not have anything else to offer. The daughter is asked that I forward the results of her evaluation today to [facility] in [place]. Departure - Departure Time of Disposition: 11:09 Disposition: Home, Self-Care 01 Reason for Transfer *Q: Other Condition: Good Clinical Impression: Abnormal ECG Referrals: Madisyn Shaffer NP [Primary Care Provider] - Forms: ED Department Discharge Additional Instructions: Evaluation in the emergency room today in regards to concerns by primary care provider about ECG performed at the clinic today. It shows that she has an atrial paced rhythm at 60 bpm which is where the pacemaker would be set. She has left axis deviation of -36 degrees which is a normal variation and is of no consequence. There is some suggestion that she has mild left ventricular hypertrophy pattern which would be normal for her age. There is no signs of worrisome changes in the ECG such as heart attack or abnormal rhythm etc. Review of her lab test showed all was normal other than her serum TSH was 0.47 which is low. I would suggest cutting back on her thyroid supplementation from 125 mcg a day to 100 mcg a day. Hyperthyroidism in the elderly can cause arrhythmias and aggravate heart failure. Otherwise no medication changes are in order. I will forward her chart to Reji aditya at [facility] in [place] as he adjusts her medications. Sepsis Event Note (ED) - Evaluation Sepsis Screening Result: No Definite Risk - Focused Exam Vital Signs: Vital Signs Temp Pulse Resp BP Pulse Ox 08/31/20 10:27 36.3 C 63 12 143/70 H 97 - My Orders Last 24 Hours: My Active Orders 08/31/20 10:43 EKG Documentation Completion [RC] STAT - Assessment/Plan Last 24 Hours: My Active Orders 08/31/20 10:43 EKG Documentation Completion [RC] STAT
== END 2020-08-31 11:39 | disposition home or self-care (01) ==
LOC: JD.ED 10:14
DX: R94.31 Abnormal electrocardiogram [ECG] [EKG] (principal); I48.91 Unspecified atrial fibrillation; I10 Essential (primary) hypertension; M19.90 Unspecified osteoarthritis, unspecified site; E66.9 Obesity, unspecified; Z68.35 Body mass index [BMI] 35.0-35.9, adult; E03.9 Hypothyroidism, unspecified; Z88.5 Allergy status to narcotic agent; Z88.0 Allergy status to penicillin; Z79.82 Long term (current) use of aspirin; Z79.899 Other long term (current) drug therapy
CPT/HCPCS: 93005; 93010; 99283; 99283-25